=== PATIENT | female | born 1990 | race Caucasian/White ===

== ENCOUNTER 2021-12-09 00:50 | Emergency (ER) | payer SELFPAY ==
[~2021-12-09] VITALS: Ht 162.6 cm; Wt 52.0 kg
[2021-12-09] MEDS ORDERED: IV NORMAL SALINE 1000ML BAG 1,000 ML IV ONE ×2 (01:15→04:30)
[2021-12-09] MEDS ORDERED: MECLIZINE HCL 12.5 MG TABLET. PO ONE (01:15)
--- NOTE | 2021-12-09 01:18 | PHYS DOC ---
Past Medical History Past Medical History: No Pertinent History (MARCO A ENGLAND Alexander [employer]MAN OF [employer]) Past Surgical History: No Surgical History (MARCO A ENGLAND [employer]) Alcohol Use: Occasionally Drug Use: None (MARCO A ENGLAND [employer]) General Adult HPI: HPI: Patient is a 31 year old female patient presented to the ED today to be evaluated for dizziness, patient states symptoms began a couple minutes after taking a 30-minute shower. Patient states this shower was not unusual, she states the temperature of the water as well as the length of time in the shower is same as every day. She states she feels like everything is spinning including herself. Denies anything specifically relieving her symptoms. She is tensed and screaming " h..e..l..p". Denies any alcohol or drug use. She is also screaming asking for anxiety medicine. Patient is also complaining of a cough for 1 week. (MARCO A ENGLAND CH[employer]) Review of Systems: Review of Systems: Constitutional: Denies fever or chills. [] Eyes: Denies change in visual acuity. [] HENT: Denies nasal congestion or sore throat. [] Respiratory: Reports cough denies shortness of breath. [] Cardiovascular: Denies chest pain or edema. [] GI: Denies abdominal pain, nausea, vomiting, bloody stools or diarrhea. [] : Denies dysuria. [] Musculoskeletal: Denies back pain or joint pain. [] Integument: Denies rash. [] Neurologic: Reports dizziness. Denies headache, focal weakness or sensory changes. [] Psychiatric: Appears anxious (MARCO A ENGLAND [employer]MAN [employer]) Heart Score: C/O Chest Pain: N/A Risk Factors: Risk Factors: DM, Current or recent (<one month) smoker, HTN, HLP, family history of CAD, obesity. Risk Scores: Score 0 - 3: 2.5% MACE over next 6 weeks - Discharge Home Score 4 - 6: 20.3% MACE over next 6 weeks - Admit for Clinical Observation Score 7 - 10: 72.7% MACE over next 6 weeks - Early Invasive Strategies (MARCO A ENGLAND Alexander [employer]) Current Medications: Current Medications Medications (Trade) Dose Ordered Sig/Gabriela Start Time Stop Time Status Last Admin Dose Admin Meclizine HCl (Antivert) 12.5 mg 1X ONCE 12/09/21 01:15 12/09/21 01:16 Sodium Chloride 1,000 ml @ 1,000 mls/hr 1X ONCE 12/09/21 01:15 12/09/21 02:14 (MARCO A ENGLAND APRN) Allergies: Allergies: Allergies Coded Allergies Type Severity Reaction Last Updated Verified No Known Drug Allergies 01/15/14 No (MARCO A ENGLAND APRN) Physical Exam: PE: Constitutional: Well developed, well nourished, no acute distress, non-toxic appearance. [] HENT: Normocephalic, atraumatic, bilateral external ears normal, oropharynx moist, no oral exudates, nose normal. [] Eyes: PERRLA, EOMI, conjunctiva normal, no discharge. [] Neck: Normal range of motion, no tenderness, supple, no stridor. [] Cardiovascular:Heart rate regular rhythm, no murmur [] Lungs & Thorax: Bilateral breath sounds clear to auscultation [] Abdomen: Bowel sounds normal, soft, no tenderness, no masses, no pulsatile masses. [] Skin: Warm, dry, no erythema, no rash. [] Back: No tenderness, no CVA tenderness. [] Extremities: No tenderness, no cyanosis, no clubbing, ROM intact, no edema. [] Neurologic: Alert and oriented X 3, normal motor function, normal sensory function, no focal deficits noted. [] Psychologic: Appears anxious, flat affect, screaming out loud, very tensed (MARCO A ENGLAND APRN) EKG: EK interpreted by Dr. Garcia sinus rhythm heart rate 85 no STEMI [] (MARCO A ENGLAND APRN) Radiology/Procedures: Radiology/Procedures: [] (MARCO A ENGLAND APRN) Course & Med Decision Making: Course & Med Decision Making Pertinent Labs and Imaging studies reviewed. (See chart for details) This a 31-year-old female patient presented to the ED today to be evaluated for dizziness that began after taking a 30-minute shower. Patient is also complaining of cough for 1 week. Patient arrives in the ED very tensed and screaming out loud. [address] Garcia (MARCO A ENGLAND [employer]) Course & Med Decision Making This patient was initially seen by the nurse practitioner. I assumed care of 0130. The patient was noted to have significant hypokalemia. I ordered IV and oral potassium replacement. Repeat labs demonstrate marked improvement, potassium is normal. The patient reports feeling much better. She is positive for influenza A. I discussed the findings, differential diagnosis and plan of care with her. I discussed home care instructions. I told her to make sure she stays hydrated, eat a high potassium diet. She declines any medications for discharge. I told her to contact her PCP for follow-up. She is feeling much better, resting comfortably, verbalized understanding of instructions given. She is discharged in stable and improved condition. (CONNOR GARCIA DO) Dragon Disclaimer: Dragon Disclaimer: This electronic medical record was generated, in whole or in part, using a voice recognition dictation system. (MARCO A ENGLAND APRN) Departure Departure Impression: Primary Impression: Dizziness Additional Impressions: Hypokalemia Influenza A Disposition: HOME / SELF CARE / HOMELESS Condition: STABLE Referrals: NON,STAFF (PCP) Patient Instructions: Hypokalemia, Influenza A (H1N1) Additional Instructions: Return to the ER for uncontrolled vomiting, dehydration, chest pain, shortness of breath, abdominal pain, focal weakness or any other concerns. Please eat a high potassium diet, drink plenty of fluids, stay hydrated. Follow-up with your primary care physician. MARCO A ENGLAND APRN Dec 09, 2021 01:18 CONNOR GARCIA DO Dec 09, 2021 06:20
[2021-12-09 01:21] LABS: BASO % 1 % (0-3); EOS % 2 % (0-3); HEMATOCRIT 41.1 % (36.0-47.0); HEMOGLOBIN 14.2 g/dL (12.0-15.5); LYMPH # 1.3 x10^3/uL (1.0-4.8); LYMPH % 42 % (24-48); MEAN CORPUSCULAR HEMOGLOBIN 33 pg (25-35); MEAN CORPUSCULAR HGB CONC 35 g/dL (31-37); MEAN CORPUSCULAR VOLUME 94 fL (79-100); MONO # 0.5 x10^3/uL (0.0-1.1); MONO % 16 % (0-9); NEUT # 1.2 x10^3/uL (1.8-7.7); NEUT % 40 % (31-73); PLATELET COUNT 128 x10^3/uL (140-400); RED BLOOD COUNT 4.36 x10^6/uL (3.50-5.40); RED CELL DISTRIBUTION WIDTH 12.7 % (11.5-14.5); WHITE BLOOD COUNT 3.1 x10^3/uL (4.0-11.0)
[2021-12-09 01:35] LABS: ALBUMIN/GLOBULIN RATIO 1.3 (1.0-1.7); CREATININE 0.9 mg/dL (0.6-1.0); GFR 72.6; MAGNESIUM 1.8 mg/dL (1.8-2.4); TOTAL BILIRUBIN 0.4 mg/dL (0.2-1.0)
[2021-12-09 01:36] LABS: POTASSIUM 2.8 mmol/L (3.5-5.1)
[2021-12-09] MEDS ORDERED: POTASSIUM CHLORIDE 20 MEQ TABLET.ER. PO ONE (01:45)
--- NOTE | 2021-12-09 01:53 | RAD ---
XR CHEST 1V History: Dizziness Comparison: None. Technique: Portable AP radiograph of the chest. Findings: The lungs are adequately inflated. There is diffuse prominence of the pulmonary interstitial markings . No focal consolidation, pleural effusion or pneumothorax. Cardiomediastinal silhouette and pulmonar y vasculature are within normal limits. Osseous structures and soft tissues are unremarkable. Impression: 1. Mild diffuse prominence of pulmonary interstitial markings may represent atypical infectious proc ess or interstitial disease. Electronically signed by: Andrzej Simon MD (12/09/2021 1:50 AM) [facility]
[2021-12-09] MEDS ORDERED: POTASSIUM CHLORIDE 20MEQ 100 ML IV ONE (02:00)
[2021-12-09 02:04] LABS: INFLUENZA A PATIENT POSITIVE (NEGATIVE); INFLUENZA B PATIENT NEGATIVE (NEGATIVE)
[2021-12-09 04:10] VITALS: BP 110/64
[2021-12-09] MEDS ORDERED: IV NORMAL SALINE 500ML BAG 500 ML IV ONE (04:30)
[2021-12-09 05:35] LABS: CALCIUM 7.2 mg/dL (8.5-10.1); CREATININE 0.7 mg/dL (0.6-1.0); POTASSIUM 4.3 mmol/L (3.5-5.1)
[2021-12-09 06:46] LABS: BARBITURATES NEG (NEG); BENZODIAZEPINES NEG (NEG); CANNABINOIDS NEG (NEG); COCAINE NEG (NEG); METHADONE NEG (NEG); OPIATES NEG (NEG); PHENCYCLIDINE NEG (NEG)
[2021-12-09 06:47] LABS: AMPHETAMINE/METHAMPHETAMINE NEG (NEG)
[2021-12-09 06:52] LABS: BILIRUBIN,URINE NEGATIVE (NEG); CLARITY,URINE CLEAR; COLOR,URINE YELLOW; NITRITE,URINE NEGATIVE (NEG); PH,URINE 6.5 (<5.0-8.0); PROTEIN,URINE NEGATIVE (NEG-TRACE)
[2021-12-09 06:53] LABS: BACTERIA,URINE 0 /HPF (0-FEW); RBC,URINE 0 /HPF (0-2); WBC,URINE 0 /HPF (0-4)
--- NOTE | 2021-12-09 18:34 | EKG ---
[facility] [address] [place] [address] Test Date: 1999[birth year]09-24 Test Time: 01:31:30 Pat Name: YUMIKO MURPHY Department: Room: Gender: F Route Inspector: : 1990 Requested By: MARCO A ENGLAND Order Number: [id number] Reading MD: Measurements Intervals [place] Rate: 85 P: 0 WI: 128 QRS: 63 QRSD: 90 T: 26 QT: 404 QTc: 487 Interpretive Statements SINUS RHYTHM AXIS NORMAL CONSIDERING AGE LOW VOLTAGE INCOMPLETE RIGHT BUNDLE BRANCH BLOCK PROLONGED QT ABNORMAL ECG RI6.02 No previous ECG available for comparison
== END 2021-12-09 06:55 | disposition home or self-care (01) ==
LOC: ER 00:50
DX: R42 Dizziness and giddiness (principal); E87.6 Hypokalemia; J09.X2 Influenza due to identified novel influenza A virus with other respiratory manifestations; Z20.822 Contact with and (suspected) exposure to COVID-19
CPT/HCPCS: 36415; 71045; 80048; 80053; 80307; 81001; 83735; 84484; 85025; 87428; 93005; 96361; 96365; 99285; C9803; G0480; J3480; J7030; J7040; J8597; U0003